=== PATIENT | female | born 1980 | race Hispanic/Latino ===

== ENCOUNTER 2016-12-09 20:54 | Observation (INO) | payer MEDICAID ==
[2016-12-09 20:55] VITALS: BMI 54.1
[2016-12-09 21:08] VITALS: RESP 16
[2016-12-09] MEDS ORDERED: Sodium Chloride 0.9% 1,000 ML IV SCH (21:30)
[2016-12-09 21:52] LABS: BASO # 0.1 K/uL (0.0-0.2); BASO % 0.7 % (0.0-2.0); EOS # 0.4 K/uL (0.0-0.7); EOS % 4.3 % (0.0-4.0); HEMATOCRIT 35.7 % (34.0-47.0); LYMPH % 30.7 % (20.0-40.0); MEAN CELL VOLUME 89.4 fl (81.0-99.0); MEAN CORPUSCULAR HEMOGLOBIN 30.2 pg (27.0-31.0); MEAN CORPUSCULAR HGB CONC 33.8 g/dL (33.0-37.0); MEAN PLATELET VOLUME 10.4 fl (7.2-11.7); MONO # 0.8 K/uL (0.0-0.8); MONO % 7.8 % (0.0-10.0); NEUT # 5.5 K/uL (1.8-7.0); NEUT % 56.5 % (50.0-75.0); RED CELL DISTRIBUTION WIDTH 16.3 % (11.5-14.5); WHITE BLOOD COUNT 9.8 K/uL (4.8-10.8)
[2016-12-09 22:07] LABS: PARTIAL THROMBOPLASTIN TIME 28.2 Seconds (25.6-37.1)
--- NOTE | 2016-12-09 22:11 | ED PDOC ---
Lower Extremity Pain/Injury Time Seen by Provider: 12/09/16 21:17 Chief Complaint (Nursing): Chest Pain Chief Complaint (Provider): chest pain History Per: Patient History/Exam Limitations: no limitations Onset/Duration Of Symptoms: Days (x3) Current Symptoms Are (Timing): Still Present Additional Complaint(s): Gladis Faith is a 36 year old female with previous medical history of hypertension and schizoaffective disorder, who presents to the emergency department with a complaint of "heavy" chest pain associated with bilateral ankle swelling ongoing for 3 days. Denied any fever, chills, cough, loss of appetite, shortness of breath, abdominal pain, back pain, dysuria or radiation of pain. PMD: none provided Past Medical History Reviewed: Historical Data, Nursing Documentation, Vital Signs Vital Signs: Last Vital Signs Temp 98.4 F 12/09/16 21:06 Pulse 69 12/09/16 21:44 Resp 16 12/09/16 21:06 BP 109/65 12/09/16 21:06 Pulse Ox 97 12/09/16 21:06 - Medical History PMH: Anxiety, Bipolar Disorder, Depression, HTN, Schizophrenia Denies: Diabetes, Hepatitis, HIV, Chronic Kidney Disease, Seizures, Sexually Transmitted Disease - Surgical History Surgical History: Cholecystectomy - Family History Family History: States: Unknown Family Hx - Social History Current smoker - smoking cessation education provided: Yes Alcohol: Occasional Drugs: Cannabis - Home Medications Home Medications: Ambulatory Orders Medication Instructions Recorded Casar Carbonate [Casar 300 mg PO BID #30 cap 06/22/16 Carbonate 300MG] Nicotine 21 mg/24 hr [Nicoderm Cq] 1 patch TD DAILY 28 Days 06/22/16 QUEtiapine [SEROquel] 50 mg PO HS #15 tab 06/22/16 - Allergies Allergies/Adverse Reactions: Allergies Allergy/AdvReac Type Severity Reaction Status Date / Time lurasidone HCl [From Latuda] Allergy VOMITING Verified 12/09/16 21:05 Review of Systems ROS Statement: Except As Marked, All Systems Reviewed And Found Negative Constitutional: Negative for: Fever Cardiovascular: Positive for: Chest Pain ("heavy"). Negative for: Other ( radiation of pain) Respiratory: Negative for: Cough, Shortness of Breath Gastrointestinal: Negative for: Abdominal Pain, Other (loss of appetite) Genitourinary Female: Negative for: Dysuria Musculoskeletal: Positive for: Other (bilateral ankle swelling). Negative for: Back Pain Physical Exam - Reviewed Nursing Documentation Reviewed: Yes Vital Signs Reviewed: Yes - Physical Exam Appears: Positive for: Well (but obese), Non-toxic, No Acute Distress Head Exam: Positive for: ATRAUMATIC, NORMAL INSPECTION, NORMOCEPHALIC Cardiovascular/Chest: Positive for: Regular Rate, Rhythm, Chest Non Tender Respiratory: Positive for: Normal Breath Sounds. Negative for: Crackles, Rales , Rhonchi, Wheezing Gastrointestinal/Abdominal: Positive for: Normal Exam, Bowel Sounds, Soft. Negative for: Tenderness Back: Positive for: Normal Inspection. Negative for: L CVA Tenderness, R CVA Tenderness Extremity: Positive for: Normal ROM, Swelling (bilateral ankles). Negative for : Calf Tenderness (or swelling) Neurologic/Psych: Positive for: Alert (x3), lsw II-XII, Oriented - Laboratory Results Result Diagrams: 12/09/16 21:43 12/09/16 21:43 - ECG O2 Sat by Pulse Oximetry: 97 (RA) Pulse Ox Interpretation: Normal Medical Decision Making Medical Decision Making: Initial Impression: Chest pain; Bilateral ankle swelling R/O acute coronary syndrome, pneumonia, and pulmonary embolism Initial Plan: * EKG * Labs * Troponin I * D Dimer * PTT * PT * NS 1,000ml IV per 250 mls/hr * touch up carver * US duplex lower extremities B/L * Re-evaluation Time: 2200 --EKG: normal sinus rhythm. No acute changes. --Negative for Razia's sign Scribe Attestation: Documented by Aracely Oliveira, acting as a scribe for Estefany Arreguin MD. Provider Scribe Attestation: All medical record entries made by the Scribe were at my direction and personally dictated by me. I have reviewed the chart and agree that the record accurately reflects my personal performance of the history, physical exam, medical decision making, and the department course for this patient. I have also personally directed, reviewed, and agree with the discharge instructions and disposition. ED OBSERVATION Date of observation admission: 12/09/16 Time of observation admission: 23:05 - Observation admission statement Patient is being placed in observation because:: patient needing additional imaging studies. elevated d-dimer with chest pain. needs CT PE study Disposition - Clinical Impression Clinical Impression: Chest pain - Patient ED Disposition Is Patient to be Admitted: Transfer of Care - Disposition Disposition: Transfer of Care Disposition Time: 23:24 Condition: STABLE Patient Signed Over To: Catrachito Mccoy (pending CT chest dn) - POA Present On Arrival: None
[2016-12-09 22:25] LABS: BLOOD UREA NITROGEN 14 mg/dl (7-17); CALCIUM 9.5 mg/dL (8.4-10.2); CARBON DIOXIDE 26 mmol/L (22-30); CHLORIDE 106 mmol/L (98-107); GFR AFRICAN-AMERICAN > 60; GLUCOSE,RANDOM 94 mg/dL (65-105); POTASSIUM 3.6 MMOL/L (3.6-5.0); SODIUM 139 mmol/l (132-148)
[2016-12-09] MEDS ORDERED: Sodium Chloride 0.9% 50 ML IV ONE (23:18)
[2016-12-09] MEDS ORDERED: Iodixanol 320 MG/ML 100 ML BOTTLE IV ONE (23:18)
--- NOTE | 2016-12-10 00:04 | US ---
EXAM: US Duplex Bilateral Lower Extremity Veins CLINICAL HISTORY: 36 years old, female; Signs and symptoms; Swelling of limb; Lower extremity, bilateral; Additional info: Leg swelling and chest pain TECHNIQUE: Real-time ultrasound scan of the veins of the bilateral lower extremities with color Doppler flow, spectral waveform analysis and compression. EXAM DATE/TIME: 12/09/2016 9:26 PM COMPARISON: No relevant prior studies available. FINDINGS: Normal-appearing compressibility, flow and augmentation response are seen within the common femoral, femoral and popliteal veins bilaterally. Flow is seen in the posterior tibial veins bilaterally, in the calves. IMPRESSION: No evidence of deep venous thrombosis in either leg.
--- NOTE | 2016-12-10 00:11 | ED PDOC ---
- Laboratory Results Result Diagrams: 12/09/16 21:43 12/09/16 21:43 - ECG O2 Sat by Pulse Oximetry: 97 (RA) Pulse Ox Interpretation: Normal Medical Decision Making Medical Decision Making: Time: 0000 Initial plan: --Patient signed out to me by Dr. Arreguin. Pending CT Scan Angio of the chest as well as Doppler. --ED-Observation [id number]: EXAM:US Duplex Bilateral Lower Extremity Veins CLINICAL HISTORY: 36 years old, female; Signs and symptoms; Swelling of limb; Lower extremity, bilateral; Additional info: Leg swelling and chest pain TECHNIQUE: Real-time ultrasound scan of the veins of the bilateral lower extremities with color Doppler flow, spectral waveform analysis and compression. EXAM DATE/TIME: 12/09/2016 9:26 PM COMPARISON: No relevant prior studies available. FINDINGS: Normal-appearing compressibility, flow and augmentation response are seen within the common femoral, femoral and popliteal veins bilaterally. Flow is seen in the posterior tibial veins bilaterally, in the calves. IMPRESSION: No evidence of deep venous thrombosis in either leg [id number]: EXAM: CT Angiography Chest With Intravenous Contrast CLINICAL HISTORY: 36 years old, female; Pain; Chest pain; Radiating; Additional info: Chest pain, elevated d-dimer, obesity TECHNIQUE: Axial computed tomographic angiography images of the chest with intravenous contrast using pulmonary embolism protocol. This CT exam was performed using one or more of the following dose reduction techniques: automated exposure control, adjustment of the mA and/or kV according to patient size, and/or use of iterative reconstruction technique. MIP reconstructed images were created and reviewed. Coronal and sagittal reformatted images were created and reviewed. CONTRAST: 95 mL of [id number] administered intravenously. EXAM DATE/TIME: 12/09/2016 11:03 PM COMPARISON: No relevant prior studies available. FINDINGS: LIMITATIONS: Artifact related to the patient's body habitus. PULMONARY ARTERIES: Main pulmonary artery segment is mildly enlarged, a finding which can be seen with pulmonary hypertension. Exam is somewhat limited for the detection of pulmonary emboli secondary to suboptimal enhancement of the pulmonary arteries. Allowing for this, no definite pulmonary emboli are seen. AORTA: No evidence of aortic dissection. LUNGS: No evidence of significant focal consolidation/infiltrate in the lungs. No evidence of diffuse pulmonary vascular congestion. PLEURAL SPACE: No pneumothorax or pleural effusions seen. HEART: No evidence of significant pericardial effusion. BONES/JOINTS: No acute bony abnormality identified. SOFT TISSUES: No acute abnormality of the visualized soft tissues seen. LYMPH NODES: No evidence of diffuse lymphadenopathy. OTHER FINDINGS: Evidence of prior granulomatous infection. IMPRESSION: - No definite pulmonary embolism or other significant acute abnormality identified. - Main pulmonary artery segment is mildly enlarged, a finding which can be seen with pulmonary hypertension. Recommend clinical correlation. - See above for remaining findings. [id number]: Discharge Instructions: Re-evaluation. Patient feels better. Discussed results and plan with patient who expresses understanding. Counseling was provided regarding the diagnosis and prognosis. All questions answered and there is agreement with the plan to discharge home with instructions. Patient instructed to follow up with primary care provider on Monday. Patient stable for discharge. Return if symptoms persist or worsen. Scribe Attestation: Documented by Daxa Pack, acting as a scribe for Catrachito Mccoy MD. Scribe Attestation: All medical record entries made by the Scribe were at my direction and personally dictated by me. I have reviewed the chart and agree that the record accurately reflects my personal performance of the history, physical exam, medical decision making, and the department course for this patient. I have also personally directed, reviewed, and agree with the discharge instructions and disposition. Disposition - Clinical Impression Clinical Impression: Chest pain - POA Present On Arrival: None - Disposition Disposition: Routine/Home Disposition Time: 00:00 Condition: STABLE ED OBSERVATION Date of observation admission: 12/10/16 Time of observation admission: 00:00 - Observation admission statement Patient is being placed in observation because:: Pending Angio Chest CAT Scan. - Goals of Observation Goals of observation are:: Observation and/or resolution of patient.
--- NOTE | 2016-12-10 00:25 | CT ---
EXAM: CT Angiography Chest With Intravenous Contrast CLINICAL HISTORY: 36 years old, female; Pain; Chest pain; Radiating; Additional info: Chest pain, elevated d-dimer, obesity TECHNIQUE: Axial computed tomographic angiography images of the chest with intravenous contrast using pulmonary embolism protocol. This CT exam was performed using one or more of the following dose reduction techniques: automated exposure control, adjustment of the mA and/or kV according to patient size, and/or use of iterative reconstruction technique. MIP reconstructed images were created and reviewed. Coronal and sagittal reformatted images were created and reviewed. CONTRAST: 95 mL of [id number] administered intravenously. EXAM DATE/TIME: 12/09/2016 11:03 PM COMPARISON: No relevant prior studies available. FINDINGS: LIMITATIONS: Artifact related to the patient's body habitus. PULMONARY ARTERIES: Main pulmonary artery segment is mildly enlarged, a finding which can be seen with pulmonary hypertension. Exam is somewhat limited for the detection of pulmonary emboli secondary to suboptimal enhancement of the pulmonary arteries. Allowing for this, no definite pulmonary emboli are seen. AORTA: No evidence of aortic dissection. LUNGS: No evidence of significant focal consolidation/infiltrate in the lungs. No evidence of diffuse pulmonary vascular congestion. PLEURAL SPACE: No pneumothorax or pleural effusions seen. HEART: No evidence of significant pericardial effusion. BONES/JOINTS: No acute bony abnormality identified. SOFT TISSUES: No acute abnormality of the visualized soft tissues seen. LYMPH NODES: No evidence of diffuse lymphadenopathy. OTHER FINDINGS: Evidence of prior granulomatous infection. IMPRESSION: - No definite pulmonary embolism or other significant acute abnormality identified. - Main pulmonary artery segment is mildly enlarged, a finding which can be seen with pulmonary hypertension. Recommend clinical correlation. - See above for remaining findings.
[2016-12-10 01:13] VITALS: BP 117/69; PULSE 73; TEMP 98.6
[2016-12-10 05:50] VITALS: O2SAT 97
--- NOTE | 2016-12-10 10:21 | CARD ---
APPROVED REPORT EKG Measurement Heart [id number] <Conclusion> Normal sinus rhythm Nonspecific T wave abnormality Abnormal ECG
== END 2016-12-10 01:00 | disposition home or self-care (01) ==
LOC: H.ER 20:54 → H.EROBSV 23:04
PROVIDERS: ADMIT Emergency Medicine; ATTEND Emergency Medicine
DX: R07.9 Chest pain, unspecified (principal); F17.200 Nicotine dependence, unspecified, uncomplicated; F25.9 Schizoaffective disorder, unspecified; F31.9 Bipolar disorder, unspecified; F32.9 Major depressive disorder, single episode, unspecified; F41.9 Anxiety disorder, unspecified; I10 Essential (primary) hypertension; Z79.899 Other long term (current) drug therapy; E66.9 Obesity, unspecified; M79.89 Other specified soft tissue disorders